=== PATIENT | female | born 1975 | race Caucasian/White ===

== ENCOUNTER 2021-11-06 12:44 | Observation (INO) ==
[2021-11-06 16:57] LABS: Bilirubin,Urine Negative (Negative); Blood, Urine Negative (Negative); Glucose,Urine (UA) Negative (Negative); Ketones,Urine Negative (Negative); Nitrite,Urine Negative (Negative); Protein,Urine Negative (Negative); Urine Appearance Clear (Clear); Urine Color Yellow (Yellow); Urine Specific Gravity 1.025 (1.001-1.035)
[2021-11-06 17:01] LABS: Mucus,Urine Moderate /LPF (Occasional); RBC,Urine 9 /HPF (0-4); Squamous Epithelial Cell,Urine Few /HPF (0-10)
[2021-11-06 17:08] LABS: Barbiturates Screen,Urine Negative (Negative); Benzodiazepines Screen,Urine Negative (Negative); Cannabinoid Screen,Urine Negative (Negative); Opiate Screen,Urine Negative (Negative); Phencyclidine Screen,Urine Negative (Negative)
[2021-11-06 17:38] LABS: Acetaminophen < 2.0 UG/ML (10-30); Salicylate 4.9 MG/DL (2.8-20)
[2021-11-06 17:40] LABS: Alanine Aminotransferase 15 U/L (13-56); Albumin 2.9 G/DL (3.4-5.0); Alkaline Phosphatase 88 U/L (45-117); Aspartate Amino Transferase 12 U/L (0-37); Basophils # 0.1 10*3/uL (0.0-0.2); Basophils % 1.6 % (0.0-0.8); Bilirubin,Total < 0.39 MG/DL (0.20-1.00); Blood Urea Nitrogen 15 MG/DL (7-18); Calcium 8.5 MG/DL (8.5-10.1); Carbon Dioxide 21 MMOL/L (21-32); Eosinophils % 0.4 % (0.00-10.9); Estimated Glom Filtration Rate 101 ML/MIN; Glucose 96 MG/DL (74-106); Hematocrit 43.3 VOL% (35.7-47.0); Hemoglobin 12.8 GM/DL (12.0-16.0); Immature Granulocytes % 0.5 %; Immature Granulocytes Absolute 0.04 #; Lymphocytes # 1.6 10*3/uL (1.4-4.0); Lymphocytes % 18.3 % (21.3-54.2); Mean Corpuscular HGB Conc 29.6 GM/DL (32-36); Mean Corpuscular Volume 80.9 FL (87-102); Mean Platelet Volume 10.5 FL (9.6-12.0); Monocytes % 5.5 % (1.7-12.7); Neutrophils % 73.7 % (38.7-73.9); Osmolality,Calculated 283.1 MOS/KG (273-304); Platelet Count 267 T/CUMM (130-400); Potassium 4.2 MMOL/L (3.5-5.1); Red Blood Count 5.35 MC/CUMM (3.8-5.5); Red Cell Distribution Width 17.2 % (9.3-17.3); Sodium 142 MMOL/L (136-145); Total Protein 6.6 G/DL (6.4-8.2); White Blood Count 8.5 T/CUMM (4-12)
[2021-11-06 19:14] LABS: Anisocytosis 1+; Hypochromia 1+; Microcytosis 1+; Platelet Estimate Normal
[2021-11-06 19:15] LABS: Polychromasia Slight; Target Cells Slight
[2021-11-06] MEDS ORDERED: ONDANSETRON 4 MG/2 ML VIAL IV PRN (20:04)
[2021-11-06] MEDS ORDERED: GLUCAGON 1 MG VIAL IM PRN (20:04)
[2021-11-06] MEDS ORDERED: LORazepam 2 MG/1 ML VIAL IV PRN (20:04)
[2021-11-06] MEDS ORDERED: ACETAMINOPHEN 325 MG TABLET PO PRN (20:04)
[2021-11-06] MEDS ORDERED: DEXTROSE 10% 250 ML BAG IV PRN (20:12)
[2021-11-06] MEDS ORDERED: hydrALAZINE 20 MG/1 ML VIAL IV STA (20:13)
[2021-11-06] MEDS ORDERED: hydrALAZINE 20 MG/1 ML VIAL IV PRN (20:13)
[2021-11-06] MEDS ORDERED: SODIUM CHLORIDE 0.45% 1,000 ML IV SCH (20:30)
[2021-11-06] MEDS ORDERED: ENOXAPARIN 40 MG/0.4 ML SYRINGE SUBCUT SCH (21:00)
[2021-11-07 07:27] LABS: Basophils # 0.1 10*3/uL (0.0-0.2); Eosinophils % 0.1 % (0.00-10.9); Hematocrit 45.8 VOL% (35.7-47.0); Immature Granulocytes % 0.4 %; Immature Granulocytes Absolute 0.04 #; Lymphocytes # 1.9 10*3/uL (1.4-4.0); Lymphocytes % 18.5 % (21.3-54.2); Mean Corpuscular HGB Conc 30.6 GM/DL (32-36); Mean Corpuscular Volume 78.3 FL (87-102); Mean Platelet Volume 10.2 FL (9.6-12.0); Monocytes % 6.2 % (1.7-12.7); Neutrophils % 73.8 % (38.7-73.9); Platelet Count 334 T/CUMM (130-400); Red Blood Count 5.85 MC/CUMM (3.8-5.5); Red Cell Distribution Width 17.8 % (9.3-17.3); White Blood Count 10.1 T/CUMM (4-12)
[2021-11-07 07:38] LABS: Calcium 8.8 MG/DL (8.5-10.1); Osmolality,Calculated 275.5 MOS/KG (273-304); Potassium 3.6 MMOL/L (3.5-5.1); Risk Ratio 5.78; Thyroid Stimulating Hormone 1.02 uIU/ml (0.358-3.74); VLDL Cholesterol 26.8 MG/DL
[2021-11-07] MEDS ORDERED: PANTOPRAZOLE 40 MG TABLET PO SCH (09:00)
[2021-11-07 23:54] VITALS: BP 159/84
== END 2021-11-07 23:55 ==
LOC: N.EDINP 12:44 → N.ED 12:44 → N.EDINP 11-07 23:51
PROVIDERS: ADMIT Internal Medicine; ATTEND Internal Medicine